=== PATIENT | male | born 1970 | race Caucasian/White ===

== ENCOUNTER 2021-11-01 06:34 | Emergency (ER) | payer SELFPAY ==
[2021-11-01 06:44] VITALS: BP 157/99; PULSE 82; RESP 18; TEMP 37.1; O2SAT 97; BMI 42.8
--- NOTE | 2021-11-01 06:48 | CTR_ITS ---
PROCEDURE INFORMATION: Exam: CT Abdomen And Pelvis With Contrast Exam date and time: 11/01/2021 6:48 AM Age: 51 years old Clinical indication: Abdominal pain; Additional info: Abd pain and distention TECHNIQUE: Imaging protocol: Computed tomography of the abdomen and pelvis with contrast. Total images: 278 Radiation optimization: All CT scans at this facility use at least one of these dose optimization techniques: automated exposure control; mA and/or kV adjustment per patient size (includes targeted exams where dose is matched to clinical indication); or iterative reconstruction. Contrast material: OMNI 300; Contrast volume: 95 ml; Contrast route: INTRAVENOUS (IV); COMPARISON: No relevant prior studies available. RADIATION DOSE METRICS: Total DLP (mGy-cm): 2035.18 FINDINGS: Liver: Normal. No mass. Gallbladder and bile ducts: Normal. No calcified stones. No ductal dilation. Pancreas: Normal. No ductal dilation. Spleen: Incidental splenic granuloma. Adrenal glands: Normal. No mass. Kidneys and ureters: Normal. No hydronephrosis. Stomach and bowel: Findings of infectious or inflammatory gastritis suspected. Appendix: No evidence of appendicitis. Intraperitoneal space: Unremarkable. No free air. No significant fluid collection. Vasculature: Incidental venous phlebolith noted. Lymph nodes: Unremarkable. No enlarged lymph nodes. Urinary bladder: Unremarkable as visualized. Reproductive: Unremarkable as visualized. Bones/joints: Mild scattered degenerative changes of the spine. Soft tissues: Bilateral fat-containing inguinal hernia. CT/CT abdomen pelvis w con* [id number] IMPRESSION: Findings of infectious or inflammatory gastritis suspected.
--- NOTE | 2021-11-01 06:51 | ED_ITS ---
HPI - Nausea/Vomiting/Diarrhea General: Chief complaint: Nausea/Vomiting/Diarrhea Stated complaint: N/V/D Time Seen by Provider: 11/01/21 06:39 History of Present Illness: HPI Narrative: Patient comes in with abdominal pain, nausea, vomiting, and diarrhea. States that it started last night about 1130 and has been coming and going since, no radiation, crampy in nature, started about an hour prior to arrival, associated with nausea vomiting and diarrhea. Denies any fever. Denies any previous surgery on his abdomen. States that he feels bloated. States that he ate some TV dinners that he thought might have been bad last night. Associated nausea: Yes Associated symtoms: Reports nausea; Denies altered mental status, anxiety, change in vision, chest pain, headache(s) or palpitations Review of Systems Const: Denies: fever(s) or body aches Eyes: Denies: change in vision or blurry vision ENMT: Denies: throat pain or odynophagia Card: Denies: chest pain or palpitations Resp: Denies: dyspnea or productive cough GI: Reports: abdominal pain, nausea, vomiting and diarrhea : Denies: flank pain Musc: Denies: neck pain or back pain Skin/Breast: Denies: rash or pruritus Neuro: Denies: headache(s) or numbness in extremities Psych: Denies: anxiety or change in appetite Endo: Denies: polyuria or excessive sweating Physical Exam Const: COMMON NORMALS: patient oriented x3; apparent distress (Mild distress from nausea) EXAM LIMITATIONS: no altered mental status GENERAL APPEARANCE: cooperative, comfortable and well developed ORIENTATION/CONSCIOUSNESS: Yes awake, Yes oriented to person, Yes oriented to place and Yes oriented to time HENMT: COMMON NORMALS: normocephalic and atraumatic HEAD & SCALP: normocephalic and atraumatic Eye: COMMON NORMALS: Equal, round and reactive pupils present and EOMs intact bilaterally PUPIL: Yes Equal, round and reactive pupils present Neck/C-Spine: COMMON NORMALS: full ROM and supple Resp: COMMON NORMALS: normal respiratory effort, No retractions and clear to auscultation bilaterally AUSCULTATION: clear to auscultation bilaterally Cardio: COMMON NORMALS: regular rate and regular rhythm RATE: regular rate RHYTHM: regular rhythm GI: COMMON NORMALS: Normal to inspection, nondistended, normoactive bowel sounds present, Soft to palpation and non-tender PALPATION: Yes Soft to palpation Back/Pelvis: COMMON NORMALS: thoraco-lumbar ROM normal Extremity: COMMON NORMALS: normal to inspection and full ROM Neuro: COMMON NORMALS: patient oriented x3 SENSORIUM/ORIENTATION: Yes oriented to person, Yes oriented to place and Yes oriented to time Course ED course: Patient comes in with abdominal pain, nausea, vomiting, and diarrhea that has been coming and going since it started last night about 1130. States the abdominal pain is cramping in nature and is off and on. States it is gone at this time, however he still has significant nausea and feels like he is going to throw up. States that he feels like he is bloated. On physical exam his abdomen is distended, soft, nontender. I do not know if the distention is due to normal body habitus or pathologic in nature. We will check labs, treat nausea with IV antiemetics, give IV fluids, check CT abdomen, and reassess. Reevaluation(s): Reevaluation #1: On reassessment the patient is resting comfortably with no signs of distress. Talked about the test results. Will discharge with precautions return for worsening or changing symptoms. Vital Signs: Vital signs: Vital Signs Temperature 98.7 F 11/01/21 06:44 Pulse Rate 86 11/01/21 08:20 Respiratory Rate 20 H 11/01/21 08:20 Blood Pressure 189/94 11/01/21 08:20 Pulse Oximetry 99 11/01/21 08:20 MDM - Nausea/Vomiting/Diarrhea Lab Data: Labs: Lab Results 11/01/21 11/01/21 11/01/21 07:15 07:15 08:00 WBC 15.0 10^3/uL H 10 ^3/uL (4.0-10.0) RBC 4.99 10^6/uL 10^6 /uL (4.1-5.3) Hgb 15.7 g/dL g/dL (11.7-16.6) Hct 46.9 % % (42.0-52.0) MCV 94.0 fl fl (80-94) MCH 31.5 pg pg (28.0-34.0) MCHC 33.5 g/dL g/dL (30.0-36.0) RDW 12.6 % % (12.1-15.1) Plt Count 286 10^3/cmm 10^3 /cmm (130-400) MPV 10.1 fL fL (7.4-10.4) Neut % (Auto) 73.0 % % Lymph % (Auto) 14.6 % % [place] % (Auto) 10.6 % % Eos % (Auto) 0.3 % % Baso % (Auto) 0.5 % % Neut # (Auto) 10.96 10^3/uL H 1 0^3/uL (1.8-7.7) Lymph # (Auto) 2.2 10^3/uL 10^3/ uL (0.8-4.8) [place] # (Auto) 1.6 10^3/uL H 10^ 3/uL (0.2-0.9) Eos # (Auto) 0.1 10^3/uL 10^3/ uL (0.0-0.8) Baso # (Auto) 0.1 10^3/uL 10^3/ uL (0.0-0.1) Nucleated RBC % (a uto) 0 % % Nucleated RBCs # 0.0 /100WBC /100W BC Sodium 140 mmol/L mmol/L (136-145) Potassium 3.8 mmol/L mmol/L (3.5-5.1) Chloride 108 mmol/L H mmol /L (98-107) Carbon Dioxide 22 mmol/L mmol/L (22-29) Anion Gap 13.8 (5-19) BUN 12 mg/dL mg/dL (6-20) Creatinine 0.6 mg/dL L mg/dL (0.7-1.2) GFR Calculation 142.6 mL/min H mL /min (90-130) Glucose 106 mg/dL mg/dL (65-115) Calculated Osmolal ity 290 mOsm/kg mOsm/ kg (285-295) Lactate 1.4 mmol/L mmol/L (0.5-2.2) Calcium 8.0 mg/dL L mg/dL (8.5-10.5) Total Bilirubin 0.2 mg/dL mg/dL (0.15-1.2) AST 14 U/L U/L (0-40) ALT 17 U/L U/L (0-41) Alkaline Phosphata se 62 IU/L IU/L (40-130) Total Protein 6.7 g/dL g/dL (6.6-8.7) Albumin 3.7 g/dL g/dL (3.5-5.2) Globulin 3.0 g/dL g/dL (1.3-4.6) Lipase 157 U/L H U/L (13-60) Discharge Plan Discharge Patient Disposition: Home Clinical Impression: Gastritis Qualifiers: Gastritis type: unspecified gastritis Chronicity: acute Gastritis bleeding: without bleeding Qualified Code(s): K29.00 - Acute gastritis without bleeding Condition: Stable Prescriptions: New Zofran 4 mg tablet 4 mg PO Q8H PRN (Reason: nausea and vomiting) Qty: 14 RF: 0 Discharge Orders: Discharge ED (Routine); Ordered 11/01/21 Ordered By: Uriel Spencer Activity Restrictions/Additional Instructions: Return to the emergency department for uncontrolled vomiting, dehydration, if your abdomen becomes hard or distended, or for other concerns. Coding Level of Care Code ED Bottom Painter for Selenag Fwd Exam Comprehensive
[2021-11-01 07:25] LABS: Basophils # 0.1 10^3/uL (0.0-0.1); Basophils % 0.5 %; Eosinophils # 0.1 10^3/uL (0.0-0.8); Eosinophils % 0.3 %; Hematocrit 46.9 % (42.0-52.0); Hemoglobin 15.7 g/dL (11.7-16.6); Lymphocytes # 2.2 10^3/uL (0.8-4.8); Lymphocytes % 14.6 %; Mean Corpuscular HGB Conc 33.5 g/dL (30.0-36.0); Mean Corpuscular Hemoglobin 31.5 pg (28.0-34.0); Mean Platelet Volume 10.1 fL (7.4-10.4); Monocytes # 1.6 10^3/uL (0.2-0.9); Monocytes % 10.6 %; Neutrophils # 10.96 10^3/uL (1.8-7.7); Nucleated Red Blood Cells % 0 %; Platelet Count 286 10^3/cmm (130-400); Red Blood Count 4.99 10^6/uL (4.1-5.3); Red Cell Distribution Width 12.6 % (12.1-15.1)
[2021-11-01 07:47] LABS: Alanine Aminotransferase 17 U/L (0-41); Albumin Level 3.7 g/dL (3.5-5.2); Alkaline Phosphatase 62 IU/L (40-130); Blood Urea Nitrogen 12 mg/dL (6-20); Carbon Dioxide 22 mmol/L (22-29); Chloride 108 mmol/L (98-107); Glomerular Filtration Rate 142.6 mL/min (90-130); Glucose 106 mg/dL (65-115); Lipase 157 U/L (13-60); Osmolality Calculated 290 mOsm/kg (285-295); Sodium 140 mmol/L (136-145); Total Bilirubin 0.2 mg/dL (0.15-1.2); Total Protein 6.7 g/dL (6.6-8.7)
[2021-11-01 07:49] LABS: Anion Gap 13.8 (5-19); Aspartate Amino Transferase 14 U/L (0-40); Potassium 3.8 mmol/L (3.5-5.1)
[2021-11-01] MEDS: sodium chloride 0.9% 1,000 ML 999 ML IV (07:51)
[2021-11-01] MEDS: ondansetron 2 mg/ML SDV 2 mL 4 MG IVP (07:51)
[2021-11-01 08:20] VITALS: BP 189/94; PULSE 86; RESP 20; O2SAT 99
[2021-11-01 08:25] LABS: Lactate (Lactic Acid level) 1.4 mmol/L (0.5-2.2)
[2021-11-01 09:55] VITALS: PULSE 66; RESP 18; O2SAT 97
== END 2021-11-01 09:55 | disposition home or self-care (01) ==
PROVIDERS: Emergency Provider Emergency Medicine
DX: K29.00 Acute gastritis without bleeding (principal)
CPT/HCPCS: 74177; 80053; 83605; 83690; 85025; 96361; 96374; 99284; J2405; J7030; Q9967

== ENCOUNTER 2022-01-22 23:30 | Inpatient (IN) | payer SELFPAY ==
[2022-01-22 23:54] VITALS: BP 169/116; PULSE 110; RESP 24; TEMP 36.9; O2SAT 96; BMI 40.6
[2022-01-23] VITALS (11 sets, daily range): BP systolic 115–176; BP diastolic 57–102; PULSE 79–104; RESP 16–18; TEMP 36.7–36.9; O2SAT 92–97; BMI 42.5
--- NOTE | 2022-01-23 00:04 | USR_ITS ---
PROCEDURE INFORMATION: Exam: US Scrotum and Artery or Vein of the Abdominal and/or Reproductive Organs, Limited Scrotum Exam date and time: 01/23/2022 12:28 AM Age: 51 years old Clinical indication: Scrotum pain TECHNIQUE: Imaging protocol: Real-time ultrasound of the scrotum. Real-time duplex ultrasound scan of the arterial or venous flow with lim scale, color Doppler flow and spectral waveform analysis with image documentation. Limited Duplex exam focused of the scrotum. Duplex images required to evaluate for torsion and other vascular conditions. COMPARISON: CT abdomen pelvis w con* [id number] 11/01/2021 7:24 AM FINDINGS: Right testicle: Right testicular contour and parenchymal echotexture is normal. There is no mass. The right testicle measures 3.7 x 2.7 x 2.2 cm. There is normal blood flow in the right testicle. Left testicle: Left testicular contour and parenchymal echotexture is normal. There is no mass. The left testicle measures 4.2 x 2.4 x 1.9 cm. There is normal blood flow in the left testicle. Epididymides: The epididymides are unremarkable. Scrotum: No hydrocele. US/US scrotum [id number] IMPRESSION: No pathologic findings.
--- NOTE | 2022-01-23 00:22 | W.ED.MALEGU ---
Documented by User: JIGNA Cannon 01/23/22 03:09 HPI - Male Genitourinary General: Chief complaint: ER Hold Stated complaint: Penis Pain/Swelling Time Seen by Provider: 01/23/22 00:17 History of Present Illness: Patient is a 51-year-old male comes to the ED with genital pain and swelling. Symptoms started today. Reports having some swelling of his penis with pain as well. He also is having testicular pain. Says any movement worsens the pain. He rates the pain a 9 out of 10. Reports some clear discharge from tip of penis. He describes the skin feeling overall around the tip of his penis. He reports pain when urinating. Denies any history of past STDs. Patient states he has not been sexually active in 5 years. Denies any urinary retention or purulent drainage around penis. Associated symptoms: Reports dysuria; Deny hematuria, nausea or vomiting Review of Systems Const: Denies: fever(s), chills or fatigue Eyes: Denies: change in vision or eye discomfort ENMT: Denies: throat pain, odynophagia, nasal discharge or nasal congestion Card: Denies: chest pain, palpitations, edema, swelling of feet/ankles, dyspnea on exertion or orthopnea Resp: Denies: dyspnea, productive cough or non-productive cough GI: Denies: abdominal pain, nausea, vomiting, diarrhea, constipation or hematochezia : Reports: dysuria, genital pain, penile discharge (clear discharge) and testicular pain; Denies: flank pain, difficulty urinating or hematuria Musc: Denies: neck pain, back pain or extremity swelling Skin/Breast: Denies: rash or new lesions Neuro: Denies: headache(s), numbness in extremities or weakness in extremities PFS ED PFSH: Medical History HTN (hypertension), benign Surgical History No pertinent past surgical history Family History Father CAD (coronary artery disease) Mother CAD (coronary artery disease) Social History Smoking and tobacco status: current every day smoker Alcohol intake: never Substance/Drug Use: never Physical Exam Const: COMMON NORMALS: patient oriented x3 and alert GENERAL APPEARANCE: cooperative HENMT: COMMON NORMALS: normocephalic HEAD & SCALP: normocephalic MOUTH: Normal oral and palatal mucosa present THROAT: posterior oropharynx normal and uvula midline Neck/C-Spine: COMMON NORMALS: supple GENERAL: Yes normal visual inspection Resp: COMMON NORMALS: normal respiratory effort, No retractions, No use of accessory muscles and clear to auscultation bilaterally AUSCULTATION: clear to auscultation bilaterally Cardio: COMMON NORMALS: regular rate, regular rhythm, S1 normal heart sound present, S2 normal heart sound present, No gallops present (Cardio), No clicks present (Cardio), No murmurs present (Cardio) and Peripheral pulses 2+ throughout RATE: regular rate RHYTHM: regular rhythm HEART SOUNDS: S1 normal heart sound present and S2 normal heart sound present PERIPHERAL PULSES: Peripheral pulses 2+ throughout GI: COMMON NORMALS: Normal to inspection, nondistended, normoactive bowel sounds present, Soft to palpation, non-tender and no masses PALPATION: Yes Soft to palpation : COMMON NORMALS: Yes no CVA tenderness BLADDER/KIDNEY EXAM: Yes no CVA tenderness OTHER: Glans penis-erythema, swollen tender to the touch. Surrounding erythema and warmth of the penis as well. Back/Pelvis: COMMON NORMALS: no CVA tenderness Extremity: COMMON NORMALS: normal to inspection Neuro: COMMON NORMALS: patient oriented x3 and moves all extremities SENSORIUM/ORIENTATION: Yes alert Skin: GENERAL SKIN EXAM: dry skin Course Vital Signs: Vital signs: Vital Signs Temperature 98.4 F 01/23/22 02:47 Pulse Rate 98 01/23/22 02:47 Respiratory Rate 18 01/23/22 02:47 Blood Pressure 155/87 01/23/22 02:47 Pulse Oximetry 96 01/23/22 02:47 MDM - Male Lab Data I reviewed the patient's lab results. : 01/23/22 00:57 01/23/22 00:57 Radiology Impressions Scrotum Ultrasound 01/23/22 00:04 IMPRESSION: No pathologic findings. Laboratory Results WBC 14.8 10^3/uL (4.0-10.0) H 01/23/22 00:57 RBC 5.30 10^6/uL (4.1-5.3) 01/23/22 00:57 Hgb 16.6 g/dL (11.7-16.6) 01/23/22 00:57 Hct 49.4 % (42.0-52.0) 01/23/22 00:57 MCV 93.2 fl (80-94) 01/23/22 00:57 MCH 31.3 pg (28.0-34.0) 01/23/22 00:57 MCHC 33.6 g/dL (30.0-36.0) 01/23/22 00:57 RDW 12.8 % (12.1-15.1) 01/23/22 00:57 Plt Count 252 10^3/cmm (130-400) 01/23/22 00:57 MPV 10.3 fL (7.4-10.4) 01/23/22 00:57 Neut % (Auto) 76.3 % 01/23/22 00:57 Lymph % (Auto) 11.9 % 01/23/22 00:57 [place] % (Auto) 9.1 % 01/23/22 00:57 Eos % (Auto) 1.9 % 01/23/22 00:57 Baso % (Auto) 0.4 % 01/23/22 00:57 Neut # (Auto) 11.27 10^3/uL (1.8-7.7) H 01/23/22 00:57 Lymph # (Auto) 1.8 10^3/uL (0.8-4.8) 01/23/22 00:57 [place] # (Auto) 1.4 10^3/uL (0.2-0.9) H 01/23/22 00:57 Eos # (Auto) 0.3 10^3/uL (0.0-0.8) 01/23/22 00:57 Baso # (Auto) 0.1 10^3/uL (0.0-0.1) 01/23/22 00:57 Nucleated RBC % (auto) 0 % 01/23/22 00:57 Nucleated RBCs # 0.0 /100WBC 01/23/22 00:57 Sodium 140 mmol/L (136-145) 01/23/22 00:57 Potassium 4.4 mmol/L (3.5-5.1) 01/23/22 00:57 Chloride 105 mmol/L (98-107) 01/23/22 00:57 Carbon Dioxide 22 mmol/L (22-29) 01/23/22 00:57 Anion Gap 17.4 (5-19) 01/23/22 00:57 BUN 10 mg/dL (6-20) 01/23/22 00:57 Creatinine 0.7 mg/dL (0.7-1.2) 01/23/22 00:57 GFR Calculation 119.4 mL/min (90-130) 01/23/22 00:57 Glucose 137 mg/dL (65-115) H 01/23/22 00:57 Calculated Osmolality 291 mOsm/kg (285-295) 01/23/22 00:57 Calcium 9.7 mg/dL (8.5-10.5) 01/23/22 00:57 Total Bilirubin 0.5 mg/dL (0.15-1.2) 01/23/22 00:57 AST 17 U/L (0-40) 01/23/22 00:57 ALT 15 U/L (0-41) 01/23/22 00:57 Alkaline Phosphatase 77 IU/L (40-130) 01/23/22 00:57 Total Protein 6.8 g/dL (6.6-8.7) 01/23/22 00:57 Albumin 3.8 g/dL (3.5-5.2) 01/23/22 00:57 Globulin 3.0 g/dL (1.3-4.6) 01/23/22 00:57 Urine Color Yellow (Yellow) 01/23/22 01:06 Urine Appearance Clear (CLEAR) 01/23/22 01:06 Urine pH 5 (5-7) 01/23/22 01:06 Ur Specific [place] 1.020 (1.005-1.030) 01/23/22 01:06 Urine Protein Neg (Negative) 01/23/22 01:06 Urine Glucose (UA) Norm (Normal) 01/23/22 01:06 Urine Ketones Negative (Negative) 01/23/22 01:06 Urine Blood Trace (Negative) H 01/23/22 01:06 Urine Nitrate Negative (Negative) 01/23/22 01:06 Urine Bilirubin Neg (Negative) 01/23/22 01:06 Urine Urobilinogen Norm mg/dL (Negative) 01/23/22 01:06 Ur Leukocyte Esterase 1+ (Negative) H 01/23/22 01:06 Urine RBC 5-10 /hpf (0-2) H 01/23/22 01:06 Urine WBC 5-10 /hpf (0-5) H 01/23/22 01:06 Ur Squamous Epith Cells 0-4 /hpf (0-5) H 01/23/22 01:06 Amorphous Sediment Not Reportable 01/23/22 01:06 Urine Bacteria Trace /hpf (NONE) 01/23/22 01:06 Urine Mucus 2+ /hpf 01/23/22 01:06 Discharge Plan Discharge Patient Disposition: Admitted As Inpatient Clinical Impression: Cellulitis, Balanitis Condition: Stable Coding Level of Care Code ED Magnet Valve Assembler for Chg Fwd Exam Comprehensive Documented by User: Omi Lovelace MD 01/23/22 02:38 HPI - Male Genitourinary General: Chief complaint: ER Hold Stated complaint: Penis Pain/Swelling Time Seen by Provider: 01/23/22 00:17 [facility] ED PFSH: Medical History HTN (hypertension), benign Surgical History No pertinent past surgical history Family History Father CAD (coronary artery disease) Mother CAD (coronary artery disease) Social History Smoking and tobacco status: current every day smoker Alcohol intake: never Substance/Drug Use: never Course Vital Signs: Vital signs: Vital Signs Temperature 98.4 F 01/23/22 02:47 Pulse Rate 98 01/23/22 02:47 Respiratory Rate 18 01/23/22 02:47 Blood Pressure 155/87 01/23/22 02:47 Pulse Oximetry 96 01/23/22 02:47 MDM - Male Medical Decision Making I saw patient with above midlevel. On exam he appears to have a severe balanitis with secondary cellulitis. No signs of Marlena's gangrene does have an elevated white count I spoke to Dr. Linton of urology along with hospitalist and will admit patient on Diflucan and vancomycin. Lab Data : 01/23/22 00:57 03 00:57 Radiology Impressions Scrotum Ultrasound 01/23/22 00:04 IMPRESSION: No pathologic findings. Laboratory Results WBC 14.8 10^3/uL (4.0-10.0) H 01/23/22 00:57 RBC 5.30 10^6/uL (4.1-5.3) 01/23/22 00:57 Hgb 16.6 g/dL (11.7-16.6) 01/23/22 00:57 Hct 49.4 % (42.0-52.0) 01/23/22 00:57 MCV 93.2 fl (80-94) 01/23/22 00:57 MCH 31.3 pg (28.0-34.0) 01/23/22 00:57 MCHC 33.6 g/dL (30.0-36.0) 01/23/22 00:57 RDW 12.8 % (12.1-15.1) 01/23/22 00:57 Plt Count 252 10^3/cmm (130-400) 01/23/22 00:57 MPV 10.3 fL (7.4-10.4) 01/23/22 00:57 Neut % (Auto) 76.3 % 01/23/22 00:57 Lymph % (Auto) 11.9 % 01/23/22 00:57 [place] % (Auto) 9.1 % 01/23/22 00:57 Eos % (Auto) 1.9 % 01/23/22 00:57 Baso % (Auto) 0.4 % 01/23/22 00:57 Neut # (Auto) 11.27 10^3/uL (1.8-7.7) H 01/23/22 00:57 Lymph # (Auto) 1.8 10^3/uL (0.8-4.8) 01/23/22 00:57 [place] # (Auto) 1.4 10^3/uL (0.2-0.9) H 01/23/22 00:57 Eos # (Auto) 0.3 10^3/uL (0.0-0.8) 01/23/22 00:57 Baso # (Auto) 0.1 10^3/uL (0.0-0.1) 01/23/22 00:57 Nucleated RBC % (auto) 0 % 01/23/22 00:57 Nucleated RBCs # 0.0 /100WBC 01/23/22 00:57 Sodium 140 mmol/L (136-145) 01/23/22 00:57 Potassium 4.4 mmol/L (3.5-5.1) 01/23/22 00:57 Chloride 105 mmol/L (98-107) 01/23/22 00:57 Carbon Dioxide 22 mmol/L (22-29) 01/23/22 00:57 Anion Gap 17.4 (5-19) 01/23/22 00:57 BUN 10 mg/dL (6-20) 01/23/22 00:57 Creatinine 0.7 mg/dL (0.7-1.2) 01/23/22 00:57 GFR Calculation 119.4 mL/min (90-130) 01/23/22 00:57 Glucose 137 mg/dL (65-115) H 01/23/22 00:57 Calculated Osmolality 291 mOsm/kg (285-295) 01/23/22 00:57 Calcium 9.7 mg/dL (8.5-10.5) 01/23/22 00:57 Total Bilirubin 0.5 mg/dL (0.15-1.2) 01/23/22 00:57 AST 17 U/L (0-40) 01/23/22 00:57 ALT 15 U/L (0-41) 01/23/22 00:57 Alkaline Phosphatase 77 IU/L (40-130) 01/23/22 00:57 Total Protein 6.8 g/dL (6.6-8.7) 01/23/22 00:57 Albumin 3.8 g/dL (3.5-5.2) 01/23/22 00:57 Globulin 3.0 g/dL (1.3-4.6) 01/23/22 00:57 Urine Color Yellow (Yellow) 01/23/22 01:06 Urine Appearance Clear (CLEAR) 01/23/22 01:06 Urine pH 5 (5-7) 01/23/22 01:06 Ur Specific [place] 1.020 (1.005-1.030) 01/23/22 01:06 Urine Protein Neg (Negative) 01/23/22 01:06 Urine Glucose (UA) Norm (Normal) 01/23/22 01:06 Urine Ketones Negative (Negative) 01/23/22 01:06 Urine Blood Trace (Negative) H 01/23/22 01:06 Urine Nitrate Negative (Negative) 01/23/22 01:06 Urine Bilirubin Neg (Negative) 01/23/22 01:06 Urine Urobilinogen Norm mg/dL (Negative) 01/23/22 01:06 Ur Leukocyte Esterase 1+ (Negative) H 01/23/22 01:06 Urine RBC 5-10 /hpf (0-2) H 01/23/22 01:06 Urine WBC 5-10 /hpf (0-5) H 01/23/22 01:06 Ur Squamous Epith Cells 0-4 /hpf (0-5) H 01/23/22 01:06 Amorphous Sediment Not Reportable 01/23/22 01:06 Urine Bacteria Trace /hpf (NONE) 01/23/22 01:06 Urine Mucus 2+ /hpf 01/23/22 01:06 Discharge Plan Discharge Patient Disposition: Admitted As Inpatient Clinical Impression: Cellulitis, Balanitis Condition: Stable Coding Level of Care Code ED Magnet Valve Assembler for Olaf Fwd Exam Comprehensive
[2022-01-23 00:59] LABS: Basophils # 0.1 10^3/uL (0.0-0.1); Basophils % 0.4 %; Eosinophils # 0.3 10^3/uL (0.0-0.8); Eosinophils % 1.9 %; Hematocrit 49.4 % (42.0-52.0); Hemoglobin 16.6 g/dL (11.7-16.6); Lymphocytes # 1.8 10^3/uL (0.8-4.8); Lymphocytes % 11.9 %; Mean Corpuscular HGB Conc 33.6 g/dL (30.0-36.0); Mean Corpuscular Hemoglobin 31.3 pg (28.0-34.0); Mean Corpuscular Volume 93.2 fl (80-94); Mean Platelet Volume 10.3 fL (7.4-10.4); Monocytes # 1.4 10^3/uL (0.2-0.9); Monocytes % 9.1 %; Neutrophils # 11.27 10^3/uL (1.8-7.7); Neutrophils % 76.3 %; Nucleated Red Blood Cells % 0 %; Platelet Count 252 10^3/cmm (130-400); Red Cell Distribution Width 12.8 % (12.1-15.1); White Blood Count 14.8 10^3/uL (4.0-10.0)
[2022-01-23] MEDS: ondansetron 2 mg/ML SDV 2 mL 4 MG IVP ×2 (01:03→05:51)
[2022-01-23] MEDS: morphine 4 mg/mL SDV 1 mL IVP (01:03)
[2022-01-23 01:20] LABS: Alkaline Phosphatase 77 IU/L (40-130)
[2022-01-23 01:22] LABS: Add Urine Culture? No; Add Urine Microscopic? YES; Bacteria Urine TRACE /hpf; Bilirubin Urine Neg (Negative); Blood Urine Trace (Negative); Glucose Urine UA Norm (Normal); Ketones Urine Negative (Negative); Leukocyte Esterase Urine 1+ (Negative); Mucus Urine 2+ /hpf; Nitrate Urine Negative (Negative); Protein Urine Neg (Negative); Squamous Epithelial Cell Urine 0-4 /hpf (0-5); Urine Appearance Clear (CLEAR); Urine Color Yellow (Yellow); Urobilinogen Urine Norm (Negative); pH Urine 5 (5-7)
[2022-01-23 01:25] LABS: Alanine Aminotransferase 15 U/L (0-41); Albumin Level 3.8 g/dL (3.5-5.2); Anion Gap 17.4 (5-19); Aspartate Amino Transferase 17 U/L (0-40); Blood Urea Nitrogen 10 mg/dL (6-20); Calcium 9.7 mg/dL (8.5-10.5); Carbon Dioxide 22 mmol/L (22-29); Chloride 105 mmol/L (98-107); Glomerular Filtration Rate 119.4 mL/min (90-130); Glucose 137 mg/dL (65-115); Osmolality Calculated 291 mOsm/kg (285-295); Potassium 4.4 mmol/L (3.5-5.1); Sodium 140 mmol/L (136-145); Total Bilirubin 0.5 mg/dL (0.15-1.2); Total Protein 6.8 g/dL (6.6-8.7)
[2022-01-23] MEDS: fluconazole 100 mg Tablet 150 MG PO (02:30)
[2022-01-23] MEDS: vancomycin 1,000 MG in sodium chloride 0.9% 250 ML 250 MG IV (02:30)
--- NOTE | 2022-01-23 02:57 | PM.HP ---
Providers/Chief Complaint Chief Complaint: Penis Pain/Swelling History of Present Illness Cole Marquez is a 51 year old male with a past medical history of hypertension, who presents to [facility] due to testicular, penile swelling, erythema, tenderness, drainage. Patient tells me that starting of for the last 24 hours he started to develop testicular alert, penile, swelling with erythema, drainage. Denies a history of STDs, denies a history of HIV, denies being sexually active, denies any dysuria. Does not report any history of shaving or ingrown hairs. He tells me that he started to feel pruritus, in the testicular region, and from there it started to develop erythema 20 redness, swelling. And rapidly evolved to involve the his penis, no history of syphilis, no history of chancres, history of herpes. In the emergency room he was found to have leukocytosis, scrotal ultrasound does not show any evidence of Marlena's gangrene ER physician has talked with Linton and he will consult, has been started on antibiotics, given fluconazole due to white discharge from penile head Review of Systems Const: Denies: fever(s) ENMT: Denies: nasal congestion Resp: Denies: dyspnea GI: Denies: abdominal pain, nausea, vomiting or hematemesis : Denies: flank pain, difficulty urinating or dysuria Medications/Allergies Home Medications Medication Instructions Recorded Confirmed Last Taken Type ondansetron HCl 4 mg tablet 4 mg PO Q8H PRN #14 tab 11/01/21 Unknown Rx (Zofran) Allergies Allergy/AdvReac Type Severity Reaction Status Date / Time No Known Allergies Allergy Verified 11/01/21 06:48 PFSH Acute PFSH: Medical History (Updated 01/23/22 @ 03:00 by Hadley Angela MD) HTN (hypertension), benign Surgical History (Updated 01/23/22 @ 03:01 by Hadley Angela MD) No pertinent past surgical history Family History (Updated 01/23/22 @ 03:01 by Hadley Angela MD) Father CAD (coronary artery disease) Mother CAD (coronary artery disease) Social History (Updated 01/23/22 @ 03:02 by Hadley Angela MD) Smoking and tobacco status: current every day smoker Alcohol intake: never Substance/Drug Use: never Vitals/I&O/Wt Last Vital Signs Temp 98.4 F 01/23/22 02:47 Pulse 98 01/23/22 02:47 Resp 18 01/23/22 02:47 BP 155/87 01/23/22 02:47 Pulse Ox 96 01/23/22 02:47 Weight last 48 hrs Weight 124.738 kg Physical Exam Const: COMMON NORMALS: no acute distress and patient oriented x3 HENMT: COMMON NORMALS: normocephalic HEAD & SCALP: normocephalic Resp: COMMON NORMALS: normal respiratory effort, No retractions, No use of accessory muscles and clear to auscultation bilaterally AUSCULTATION: clear to auscultation bilaterally Cardio: COMMON NORMALS: no JVD, regular rate, regular rhythm, S1 normal heart sound present and S2 normal heart sound present RATE: regular rate RHYTHM: regular rhythm HEART SOUNDS: S1 normal heart sound present and S2 normal heart sound present GI: COMMON NORMALS: Normal to inspection, nondistended, normoactive bowel sounds present, Soft to palpation, non-tender, No hepatosplenomegaly present, no masses and no bruits PALPATION: Yes Soft to palpation and Yes No hepatosplenomegaly present : OTHER: circumcised penis, white discharge on penile head, with erythema, almost chancre-like lesions, with surrounding erythema penile tenderness and swelling, erythema, tenderness, swelling over scrotum,, extending to the right flank Extremity: COMMON NORMALS: capillary refill normal, no clubbing, cyanosis or edema, no calf tenderness and no pedal edema Neuro: COMMON NORMALS: patient oriented x3 Psych: COMMON NORMALS: mental status grossly normal Data : 01/23/22 00:57 01/23/22 00:57 A&P Assessment and plan (1) Cellulitis: Status: Acute (2) Balanitis: Status: Acute Plan Scrotal cellulitis/balanitis -Urine culture, gonorrhea, chlamydia, HIV, RPR, -Continue broad-spectrum antibiotic therapy vancomycin and Zosyn -Follow inflammatory markers -Follow cultures -Dr. Linton on consult -Given fluconazole -Morphine for pain -Lovenox for DVT prophylaxis -Full code Attestations Medical Necessity Statement*: Patient requires hospitalization for scrotal cellulitis, inpatient, greater than 2 midnights Coding Level of Care Code Acute Child Development Teacher for [facility] Diagnoses Cellulitis L03.90 Balanitis N48.1
[2022-01-23 03:29] LABS: C Reactive Protein 11.7 mg/L (0.0-4.9); Creatine Phosphokinase 55 U/L (39-308)
[2022-01-23 03:36] LABS: Procalcitonin 0.08 ng/mL (0-0.5); Rapid Plasma Reagin Syphilis Nonreactive (Nonreactive)
[2022-01-23 03:41] LABS: HIV 1 & 2 Antibody Non-Reactive (Non-Reactiv); HIV 1 & 2 Antigen Non-Reactive (Non-Reactiv)
[2022-01-23] MEDS: enoxaparin 40 mg/0.4 mL Syringe SUBCUT (03:57)
[2022-01-23] MEDS: piperacillin-tazobactam 3.375 GM in sodium chloride 0.9% (plus) 50 ML IV ×3 (03:57→19:58)
[2022-01-23] MEDS: morphine 4 mg/mL SDV 1 mL 2 MG IVP ×4 (05:54→22:28)
--- NOTE | 2022-01-23 07:45 | PM.CONSULT ---
Providers/Reason For Consult Consulting Physician/Specialty*: Urology/Linton Reason for Consult*: Genital and lower abdominal skin infection Requesting Physician: Dr. Lovelace Attending Physician: Dain Farrell MD History of Present Illness History of Present Illness Cole Marquez is a 51 year old male who I evaluated for the first time this morning with request emergency department physician last night where he presented with complaints of what sound like a fairly abrupt onset of genital type infection. Complained initially of some irritation and pruritus with increasing pain and drainage from the external aspect of the penis. Developed some redness in the mons pubis area and presented to the emergency department. Work-up showed an elevated white count of 14. Physical exam revealed no evidence of crepitus. Ultrasound showed no air in the tissues. There was no eschar or skin necrosis. It appeared that he was suffering from cellulitis. Was started on antibiotics and antifungal therapy. I was consulted for further evaluation. My exam as above. Agree with conservative management initially. No indication for surgical intervention at this point. Review of Systems Const: Reports: fatigue and malaise; Denies: fever(s) Eyes: Denies: change in vision or eye discharge ENMT: Denies: hoarseness Card: Denies: chest pain or palpitations Resp: Denies: productive cough or wheezing GI: Reports: abdominal pain; Denies: nausea : Reports: genital lesions; Denies: flank pain or difficulty urinating Musc: Denies: joint pain or joint redness Skin/Breast: Reports: rash, pruritus and erythema Neuro: Denies: Slurred speech present, difficulty communicating thoughts or seizure-like activity Psych: Denies: anxiety or depression Endo: Denies: flushing Killian/Lymph: Denies: easy bruising or easy bleeding All/Imm: Denies: urticaria or acute wheezing Medications/Allergies Home Medications Medication Instructions Recorded Confirmed Last Taken Type ondansetron HCl 4 mg tablet 4 mg PO Q8H PRN #14 tab 11/01/21 01/23/22 Unknown Rx (Zofran) naproxen sodium 220 mg tablet 440 mg PO Q12H PRN 01/23/22 01/23/22 01/22/22 History (Aleve) Allergies Allergy/AdvReac Type Severity Reaction Status Date / Time No Known Allergies Allergy Verified 01/23/22 07:59 Current Medications Generic Name Dose Route Start Last Admin Trade Name Freq PRN Reason Stop Dose Admin Enoxaparin Sodium 40 mg 01/23/22 03:00 01/23/22 03:57 Enoxaparin 40 Mg/0.4 Ml Syringe SUBCUT 40 mg Q24H МАРИЯ Administration Piperacillin Sod/Tazobactam 50 mls @ 12.5 mls/hr 01/23/22 03:00 01/23/22 03:57 Sod 3.375 gm/ Sodium Chloride IV 12.5 mls/hr Q8H МАРИЯ Administration Protocol Morphine Sulfate 2 mg 01/23/22 02:56 01/23/22 05:54 Morphine 4 Mg/Ml Sdv 1 Ml IVP 2 mg Q4H PRN Administration SEVERE PAIN Ondansetron HCl 4 mg 01/23/22 02:51 01/23/22 05:51 Ondansetron 2 Mg/Ml Sdv 2 Ml IVP 4 mg Q8H PRN Administration vomiting, or N/V if npo PFSH Acute PFSH: Medical History HTN (hypertension), benign Surgical History No pertinent past surgical history Family History Father CAD (coronary artery disease) Mother CAD (coronary artery disease) Social History Smoking and tobacco status: current every day smoker Alcohol intake: never Substance/Drug Use: never Vitals/I&O/Wt Last Vital Signs Temp 98.4 F 01/23/22 02:47 Pulse 98 01/23/22 02:47 Resp 18 01/23/22 05:54 BP 176/96 01/23/22 05:45 Pulse Ox 96 01/23/22 05:54 01/22/22 01/23/22 01/23/22 22:59 06:59 14:59 Intake Total 250 / 250 Balance 250 / 250 Weight last 48 hrs Weight 275 lb Physical Exam Const: COMMON NORMALS: no acute distress, alert and well nourished GENERAL APPEARANCE: well kempt and well developed ORIENTATION/CONSCIOUSNESS: not confused HENMT: COMMON NORMALS: normocephalic and atraumatic HEAD & SCALP: normocephalic and atraumatic Eye: COMMON NORMALS: conjunctivae normal and no scleral icterus CONJUNCTIVA: Yes conjunctivae normal Neck/C-Spine: COMMON NORMALS: full ROM Resp: COMMON NORMALS: normal respiratory effort EFFORT & INSPECTION: No labored and No Actively coughing Cardio: COMMON NORMALS: regular rate and regular rhythm RATE: regular rate RHYTHM: regular rhythm GI: OTHER: Soft. No masses. Mons pubis erythema described below. No other gross abnormality. Truncal obesity : OTHER: Uncircumcised. Phallus is erythematous, inflamed, no evidence of skin loss. Scrotal structures are normal. Skin shows some erythema but no evidence of crepitus induration eschar etc. Mons pubis demonstrates some erythema without crepitus or skin loss. Findings most consistent with cellulitis. Extremity: COMMON NORMALS: no clubbing, cyanosis or edema Neuro: COMMON NORMALS: no focal motor deficits SENSORIUM/ORIENTATION: Yes alert Psych: COMMON NORMALS: mental status grossly normal APPEARANCE: Yes grossly normal and Yes well kempt ATTITUDE: Yes calm and Yes engaged Skin: COMMON NORMALS: no jaundice Data : 01/23/22 00:57 01/23/22 00:57 Micro: Microbiology 01/23/22 03:55 Blood Culture - Preliminary Blood SPECIMEN COLLECTED 01/23/22 00:57 Blood Culture - Preliminary Blood SPECIMEN COLLECTED A&P Assessment and plan (1) Cellulitis: No evidence of Marlena's gangrene. Status: Acute (2) Balanitis: Status: Acute Plan Agree with IV antibiotics. Close observation for significant advancement possible development of Marlena's gangrene. Consult Attestations Medical Necessity Statement: Requires IV antibiotics and close observation inpatient. 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 Diagnoses Cellulitis L03.90 Balanitis N48.1
[2022-01-23] MEDS: vancomycin 1,500 MG/300 ML PIGGYBACK 200 MG IV ×2 (10:10→17:17)
[2022-01-23] MEDS: pantoprazole DR 40 mg Tablet PO (10:11)
--- NOTE | 2022-01-23 10:23 | PC.CHAP ---
Pastoral Care Encounter/Spiritual Assessment Type of Contact [] Declined feature writer visit [] Patient/Family/Request visit [] Outpatient visit [] Follow-up visit [] Physician referral [] Code/Alert [x] Routine visit [] Staff referral [] Actively dying [] Patient sleeping [] Family support [] [] Out of room [] Palliative care [] [] Receiving care in room [] Pre-surgical visit [] Trauma [] Long length of stay [] ICU visit [] Other: Relational/Emotional Strength [x] Patient feels connected with others/family/visitors/staff [] Distress [] Loneliness/isolation [] Abandonment Spirituality of Patient [x] Person of [place] [] Attends Evangelical of their [place] [] Believes in Prayer [] Reads Bible or Anabaptism materials [] There are Spiritual issues to be addressed Dba Developer Interventions [] Prayer [x] Active listening [x] Non-anxious presence [x] Spiritual/emotional support [] Crisis/trauma care [] Spiritual counseling [] Bereavement support [] Provided bereavement packet [] Provided Bible/devotional materials [] Provided toy/stuffed animal, coloring book to patient or family member [] Provided Communion [] Anointing/Abbot [] Salvation [x] Completed spiritual assessment [] Other: Impact on Illness or Injury [] Angry [] Fearful [] Anxious [] Often cries [] Exhaustion [] Unable to work [] Unable to attend scientologist [] Unable to walk/stand [] Unable to read [] Unable to drive [] Unable to eat/drink [] Unable to sleep [] Unable to be with family [] Patient intubated [] Other: Summary Pt came through ER and is just getting settled in room. Housing staff were working on getting his room arranged for him. Pt stated he has family concerned but he has not called them yet. He does have a cell phone available. Time spent with patient 10 m
[2022-01-23] MEDS: sennosides-docusate Tablet 1 TAB PO (12:34)
[2022-01-23 12:40] LABS: Glucose Point of Care 130 mg/dL (70-110)
[2022-01-23 13:03] LABS: Chol HDL Ratio 7.28 mg/dL (1.0-5.00); Cholesterol 211 mg/dL (0-200); HDL Cholesterol 29 mg/dL (60-100); LDL Cholesterol Calculated 129 mg/dL (50-129); LDL HDL Ratio 4.45 RATIO (0.00-3.22); Triglycerides 263 mg/dL (0-150)
[2022-01-23 13:06] LABS: Estmated Average Glucose 105; Hemoglobin A1C 5.3 % (4.0-6.0)
--- NOTE | 2022-01-23 18:28 | PC.NURSE ---
Resting in bed. AAOX4, c/o minimal pain to groin at this time. Pain increases with movement. ABT infusing per orders. No other issues noted.
[2022-01-24] VITALS (11 sets, daily range): BP systolic 122–162; BP diastolic 68–86; PULSE 77–85; RESP 14–20; TEMP 36.5–37; O2SAT 94–97
[2022-01-24] MEDS: vancomycin 1,500 MG/300 ML PIGGYBACK 200 MG IV ×3 (02:24→17:37)
[2022-01-24] MEDS: piperacillin-tazobactam 3.375 GM in sodium chloride 0.9% (plus) 50 ML IV ×3 (03:46→20:30)
[2022-01-24] MEDS: enoxaparin 40 mg/0.4 mL Syringe SUBCUT (03:49)
[2022-01-24] MEDS: morphine 4 mg/mL SDV 1 mL 2 MG IVP ×4 (03:53→20:31)
[2022-01-24 05:33] LABS: Basophils # 0.1 10^3/uL (0.0-0.1); Basophils % 0.6 %; Eosinophils # 0.4 10^3/uL (0.0-0.8); Eosinophils % 3.3 %; Hematocrit 48.6 % (42.0-52.0); Hemoglobin 16.1 g/dL (11.7-16.6); Lymphocytes # 2.2 10^3/uL (0.8-4.8); Mean Corpuscular HGB Conc 33.1 g/dL (30.0-36.0); Mean Corpuscular Hemoglobin 30.5 pg (28.0-34.0); Monocytes # 0.9 10^3/uL (0.2-0.9); Monocytes % 8.3 %; Neutrophils # 7.02 10^3/uL (1.8-7.7); Neutrophils % 66.4 %; Nucleated Red Blood Cells % 0 %; Platelet Count 217 10^3/cmm (130-400); Red Blood Count 5.28 10^6/uL (4.1-5.3); Red Cell Distribution Width 12.8 % (12.1-15.1); White Blood Count 10.6 10^3/uL (4.0-10.0)
[2022-01-24 06:16] LABS: Anion Gap 14.4 (5-19); Blood Urea Nitrogen 10 mg/dL (6-20); C Reactive Protein 12.6 mg/L (0.0-4.9); Calcium 9.2 mg/dL (8.5-10.5); Carbon Dioxide 24 mmol/L (22-29); Chloride 102 mmol/L (98-107); Glomerular Filtration Rate 142.6 mL/min (90-130); Glucose 118 mg/dL (65-115); Osmolality Calculated 282 mOsm/kg (285-295); Potassium 4.4 mmol/L (3.5-5.1); Sodium 136 mmol/L (136-145)
[2022-01-24] MEDS: pantoprazole DR 40 mg Tablet PO (07:49)
[2022-01-24] MEDS: sennosides-docusate Tablet 1 TAB PO (07:49)
--- NOTE | 2022-01-24 08:51 | P.PN_ITS ---
Subjective Subjective: Patient is endorsing feeling better He has been using topical steroids for his psoriasis He was anxious to go home I told him I would like to watch him for now and he is not ready to be discharged Afebrile No severe worsening leukocytosis Vitals/I&O/Wt Last Vital Signs Temp 97.8 F 01/24/22 07:32 Pulse 77 01/24/22 07:32 Resp 20 H 01/24/22 07:55 BP 162/81 01/24/22 07:32 Pulse Ox 94 01/24/22 07:32 01/23/22 01/24/22 01/24/22 22:59 06:59 14:59 Intake Total 590 / 1300 470 / 1770 Balance 590 / 1300 470 / 1770 Weight last 48 hrs Weight 130.776 kg Weight 124.738 kg Physical Exam Narrative: Patient was laying comfortably in his bed Cellulitis of mons pubis noted hyperemia has extended slightly beyond the demarcated border however I do not feel any crepitation, no active purulent drainage Tender to palpate No pain when I touch him around medial side of his thigh no crepitation noted S1, S2 Such Room air Morbidly obese Comfortable in his bed Hemodynamically stable Nonfocal neuro exam Multiple psoriatic garcia Data : 01/24/22 05:12 01/24/22 05:12 Micro: Microbiology 01/23/22 03:55 Blood Culture - Preliminary Blood NEGATIVE TO DATE 01/23/22 00:57 Blood Culture - Preliminary Blood NEGATIVE TO DATE 01/23/22 01:06 Chlamydia trachomatis (SHARMIN) - Final Urine Random Neisseria gonorrhoeae (SHARMIN) - Final A&P Assessment and plan (1) Cellulitis: Status: Acute (2) Psoriasis: Status: Acute Plan Cellulitis, nonpurulent mons pubis No signs of Marlena's gangrene Leukocytosis trending down Afebrile Continue broad-spectrum antibiotics He is not diabetic If he keeps showing signs of improvement, will de-escalate antibiotics by tomorrow Add antihypertensive regimen for his hypertension He is not diabetic, hemoglobin A1c reviewed Opioids For psoriasis topical steroids Continue hospitalization Full code Appreciate urology recommendations DVT prophylaxis on board Attestations Medical Necessity Statement*: Continue hospitalization Time Spent in Patient Care: 20mins Coding Level of Care 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
[2022-01-24 09:31] LABS: Vancomycin Trough 13.3 ug/mL (10-15)
--- NOTE | 2022-01-24 09:50 | P.PN_ITS ---
Subjective Subjective: Overall thinks he is feeling better. Less discomfort, drying up , denies chills. Physical findings show persistence of erythema on the mons but decreasing swelling inflammatory changes of the penis and scrotum. Testicles are benign feeling with no evidence of intrascrotal infectious process. I did recommend that he continue to maintain inpatient status for IV antibiotics with reassessment in the morning for possible discharge on oral antibiotics. With the slight increase in erythema on the mons pubis I think that would make more sense There is no evidence of necrotizing fasciitis changes though. Medications: Reviewed: Yes Vitals/I&O/Wt Last Vital Signs Temp 97.8 F 01/24/22 07:32 Pulse 77 01/24/22 07:32 Resp 20 H 01/24/22 07:55 BP 162/81 01/24/22 07:32 Pulse Ox 94 01/24/22 07:32 01/23/22 01/24/22 01/24/22 22:59 06:59 14:59 Intake Total 590 / 1300 470 / 1770 Balance 590 / 1300 470 / 1770 Weight last 48 hrs Weight 288 lb 5 oz Weight 275 lb Physical Exam Narrative: Alert oriented no acute distress No labored respiration or wheezes Abdomen is soft nontender. The mons pubis area appears to be slightly increased in erythema with possibly some extension proximally that was more so than yesterday. There is no crepitus eschar skin breakdown necrosis etc. The penile inflammatory changes have decreased as well. Scrotum looks much improved from a cellulitis type perspective. Benign intrascrotal contents on examination. Data : 01/24/22 05:12 01/24/22 05:12 Micro: Microbiology 01/23/22 01:06 Urine Culture - Preliminary Urine,Clean Catch 01/23/22 03:55 Blood Culture - Preliminary Blood NEGATIVE TO DATE 01/23/22 00:57 Blood Culture - Preliminary Blood NEGATIVE TO DATE 01/23/22 01:06 Chlamydia trachomatis (SHARMIN) - Final Urine Random Neisseria gonorrhoeae (SHARMIN) - Final A&P Assessment and plan (1) Cellulitis: Improved. Still some increased erythema on the mons pubis area Status: Acute (2) Balanitis: Improved Status: Acute Attestations Medical Necessity Statement*: See attending. Hopefully tomorrow be a very reasonable day for discharge pending status of infectious changes. 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
[2022-01-25] VITALS (9 sets, daily range): BP systolic 131–146; BP diastolic 71–89; PULSE 68–86; RESP 16–18; TEMP 36.7–37; O2SAT 94–98
[2022-01-25] MEDS: vancomycin 1,500 MG/300 ML PIGGYBACK 150 MG IV ×3 (01:35→17:15)
[2022-01-25] MEDS: morphine 4 mg/mL SDV 1 mL 2 MG IVP ×4 (01:38→19:46)
[2022-01-25 03:13] LABS: Basophils # 0.1 10^3/uL (0.0-0.1); Basophils % 0.6 %; Eosinophils # 0.4 10^3/uL (0.0-0.8); Eosinophils % 3.5 %; Hematocrit 47.8 % (42.0-52.0); Hemoglobin 15.6 g/dL (11.7-16.6); Lymphocytes # 2.5 10^3/uL (0.8-4.8); Lymphocytes % 23.5 %; Mean Corpuscular HGB Conc 32.6 g/dL (30.0-36.0); Mean Corpuscular Hemoglobin 30.1 pg (28.0-34.0); Mean Corpuscular Volume 92.1 fl (80-94); Mean Platelet Volume 10.4 fL (7.4-10.4); Neutrophils # 6.48 10^3/uL (1.8-7.7); Nucleated Red Blood Cells % 0 %; Platelet Count 235 10^3/cmm (130-400); Red Blood Count 5.19 10^6/uL (4.1-5.3); Red Cell Distribution Width 12.8 % (12.1-15.1); White Blood Count 10.4 10^3/uL (4.0-10.0)
[2022-01-25 03:27] LABS: C Reactive Protein 8.7 mg/L (0.0-4.9)
[2022-01-25 03:32] LABS: Anion Gap 13.3 (5-19); Blood Urea Nitrogen 13 mg/dL (6-20); Calcium 9.7 mg/dL (8.5-10.5); Carbon Dioxide 25 mmol/L (22-29); Chloride 104 mmol/L (98-107); Glomerular Filtration Rate 119.4 mL/min (90-130); Glucose 96 mg/dL (65-115); Osmolality Calculated 286 mOsm/kg (285-295); Potassium 4.3 mmol/L (3.5-5.1); Sodium 138 mmol/L (136-145)
[2022-01-25] MEDS: piperacillin-tazobactam 3.375 GM in sodium chloride 0.9% (plus) 50 ML IV ×3 (03:45→19:46)
[2022-01-25] MEDS: enoxaparin 40 mg/0.4 mL Syringe SUBCUT (03:46)
--- NOTE | 2022-01-25 07:48 | P.PN_ITS ---
Subjective Subjective: Hospital day #3. Still has some soreness in the mons pubis area. Overall though feeling better. White count stable at 10.4. Physical exam reveals some persistence of erythema in the mons pubis but overall the genital exam is improved. No crepitus eschar skin breakdown etc. We will review with the hospitalist service for consideration of discharge on oral antibiotics or maintain inpatient status for the benefit of IV antibiotics until further improvement. Vitals/I&O/Wt Last Vital Signs Temp 98.4 F 01/25/22 07:19 Pulse 68 01/25/22 07:19 Resp 18 01/25/22 07:19 BP 142/71 01/25/22 07:19 Pulse Ox 94 01/25/22 07:19 01/24/22 01/25/22 01/25/22 22:59 06:59 14:59 Intake Total 590 / 1300 350 / 1650 Balance 590 / 1300 350 / 1650 Weight last 48 hrs Weight 288 lb 5 oz Physical Exam Const: OTHER: Alert and oriented no acute distress Resp: OTHER: No labored respiration, no wheezing : OTHER: See HPI. Still with significant erythema in the mons pubis but no increase. No crepitus. No palpable fluctuance. No skin breakdown or necrosis. Improved scrotal and penile inflammatory changes. Psych: COMMON NORMALS: mental status grossly normal, cooperative and speech normal SPEECH: Yes normal speech Data : 01/25/22 02:26 01/25/22 02:26 Micro: Microbiology 01/23/22 01:06 Urine Culture - Preliminary Urine,Clean Catch 01/23/22 03:55 Blood Culture - Preliminary Blood NEGATIVE TO DATE 01/23/22 00:57 Blood Culture - Preliminary Blood NEGATIVE TO DATE A&P Assessment and plan (1) Cellulitis: Still with some redness on the mons pubis but overall decreased tenderness. No crepitus skin loss necrosis etc. Feeling better overall. Agree with Dr. Farrell's recommendation for maintaining IV antibiotics 3 today and reassess for possible discharge tomorrow. 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
[2022-01-25] MEDS: pantoprazole DR 40 mg Tablet PO (07:57)
--- NOTE | 2022-01-25 09:18 | P.PN_ITS ---
Subjective Subjective: Patient is still endorsing some soreness and discomfort when he voids urine, however redness has not worsened He is afebrile Blood pressure stable He is not diabetic I am planning to continue IV antibiotics for 1 more day and discharge him tomorrow Patient is agreeable Appreciate Dr Linton recommendations Vitals/I&O/Wt Last Vital Signs Temp 98.4 F 01/25/22 07:19 Pulse 68 01/25/22 07:19 Resp 18 01/25/22 07:19 BP 142/71 01/25/22 07:19 Pulse Ox 94 01/25/22 07:19 01/24/22 01/25/22 01/25/22 22:59 06:59 14:59 Intake Total 590 / 1300 350 / 1650 720 / 720 Balance 590 / 1300 350 / 1650 720 / 720 Weight last 48 hrs Weight 130.776 kg Physical Exam Narrative: Hyperemia of mons pubis area seems to be regressing from its boundaries I do not appreciate any air under the skin, crepitation, active purulent discharge Tender to deep palpation Swelling of skin Nonpurulent cellulitis S1, S2 Obese male patient laying comfortably in his bed Satting well on room air Multiple psoriasis plaques Abdomen soft Nonfocal neuro exam Data : 01/25/22 02:26 01/25/22 02:26 Micro: Microbiology 01/23/22 01:06 Urine Culture - Preliminary Urine,Clean Catch A&P Assessment and plan (1) Cellulitis: Status: Acute (2) Psoriasis: Status: Acute Plan I do suspect an insect bite which resulted in nonpurulent cellulitis of mons pubis area, No signs of Marlena's gangrene Plan to continue IV antibiotics for 1 more day, de-escalate to oral antibiotics at the time of discharge Patient is agreeable with the plan will touch base with Dr. 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
[2022-01-26] VITALS (7 sets, daily range): BP systolic 122–138; BP diastolic 72–86; PULSE 72–84; RESP 16–18; TEMP 36.4–36.8; O2SAT 95–100
[2022-01-26] MEDS: vancomycin 1,500 MG/300 ML PIGGYBACK 150 MG IV ×2 (01:11→09:33)
[2022-01-26] MEDS: morphine 4 mg/mL SDV 1 mL 2 MG IVP ×2 (01:15→05:17)
[2022-01-26] MEDS: piperacillin-tazobactam 3.375 GM in sodium chloride 0.9% (plus) 50 ML IV ×2 (03:28→11:44)
[2022-01-26 03:57] LABS: Basophils # 0.1 10^3/uL (0.0-0.1); Basophils % 0.7 %; Eosinophils # 0.3 10^3/uL (0.0-0.8); Eosinophils % 2.9 %; Hematocrit 46.4 % (42.0-52.0); Hemoglobin 15.6 g/dL (11.7-16.6); Lymphocytes # 2.1 10^3/uL (0.8-4.8); Lymphocytes % 19.9 %; Mean Corpuscular HGB Conc 33.6 g/dL (30.0-36.0); Mean Corpuscular Hemoglobin 31.1 pg (28.0-34.0); Mean Corpuscular Volume 92.4 fl (80-94); Mean Platelet Volume 10.2 fL (7.4-10.4); Monocytes % 9.2 %; Neutrophils # 6.96 10^3/uL (1.8-7.7); Neutrophils % 66.9 %; Nucleated Red Blood Cells % 0 %; Platelet Count 221 10^3/cmm (130-400); Red Blood Count 5.02 10^6/uL (4.1-5.3); Red Cell Distribution Width 12.7 % (12.1-15.1); White Blood Count 10.4 10^3/uL (4.0-10.0)
[2022-01-26] MEDS: acetaminophen 325 mg Tablet 650 MG PO (09:26)
[2022-01-26] MEDS: pantoprazole DR 40 mg Tablet PO (09:26)
[2022-01-26] MEDS: sennosides-docusate Tablet 1 TAB PO (09:26)
--- NOTE | 2022-01-26 09:38 | PM.DCS ---
Discharge Providers Date of Admission: 01/23/22 04:02 Date of Discharge: January 26, 2022 Attending Provider at Admission: Hadley Angela MD Attending Provider at Discharge: Dain Farrell MD Diagnoses at Discharge Discharge Diagnosis (1) Cellulitis: Status: Acute (2) Balanitis: Status: Acute Reason for Visit Reason for Visit: Penis Pain/Swelling Hospital Course Hospital Course Admitting note by Dr. Hardy: Cole Marquez is a 51 year old male with a past medical history of hypertension, who presents to [facility] due to testicular, penile swelling, erythema, tenderness, drainage.? Patient tells me that starting of for the last 24 hours he started to develop testicular alert, penile, swelling with erythema, drainage.? Denies a history of STDs, denies a history of HIV, denies being sexually active, denies any dysuria.? Does not report any history of shaving or ingrown hairs.? He tells me that he started to feel pruritus, in the testicular region, and from there it started to develop erythema & redness, swelling.? And rapidly evolved to involve the his penis, no history of syphilis, no history of chancres, history of herpes.? In the emergency room he was found to have leukocytosis, scrotal ultrasound does not show any evidence of Marlena's gangrene ER physician has talked with Royer and he will consult, has been started on antibiotics, given fluconazole due to white discharge from penile head Hospital course Patient was admitted for management & evaluation of scrotal cellulitis with balanitis. He was kept on IV broad-spectrum antibiotics, he was given a dose of fluconazole at the time of admission. Chlamydia gonorrhea negative. He remained afebrile, no signs of crepitation or Marlena's gangrene. Cultures remain negative. Hyperemia did not worsen. CRP reduced as well. Procalcitonin 0.1. Urine cultures unremarkable, blood cultures sterile. He was given 3 days of IV antibiotics in the hospital, decision was made to discharge him on 01/[address] Linton follow-up, he will get 10-day treatment with clindamycin and Augmentin. My concern is related to spider bite induced nonpurulent cellulitis of mons pubis. His hemoglobin A1c is 5.3. He is not diabetic. I counseled patient to use a new razor every time he removes hair around mons pubis. Scrotal ultrasound unremarkable. He is not septic. HIV panel nonreactive, RPR nonreactive For psoriasis plaque prescribed topical hydrocortisone, outpatient follow-up with Dr. 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, documentation provided via case pickermanager php Exam Narrative: Patient lying comfortably in his bed Saturating well on room air Nonfocal neuro exam Abdomen soft Mons pubis area shows erythema, erythema seems to be regressing, no signs of crepitation, I do not feel any fluctuant mass as well, I do not see any signs of skin breakdown or necrosis, no signs of Marlena's gangrene Scrotal edema improved Did not notice penile discharge Bilateral fat-containing inguinal hernia Awake and alert Nonfocal neuro exam Discharge Data Studies Completed and Pending Completed Studies During Hospitalization Category Date Time Status US testicular [US scrotum [id number]] Urgent Ultrasound 01/23/22 00:04 Completed Pending at discharge Category Date Time Status Blood Culture Stat Lab 01/23/22 03:55 Results Radiology Impressions Scrotum Ultrasound 01/23/22 00:04 IMPRESSION: No pathologic findings. Laboratory Results WBC 10.4 10^3/uL (4.0-10.0) H 01/26/22 02:47 RBC 5.02 10^6/uL (4.1-5.3) 01/26/22 02:47 Hgb 15.6 g/dL (11.7-16.6) 01/26/22 02:47 Hct 46.4 % (42.0-52.0) 01/26/22 02:47 MCV 92.4 fl (80-94) 01/26/22 02:47 MCH 31.1 pg (28.0-34.0) 01/26/22 02:47 MCHC 33.6 g/dL (30.0-36.0) 01/26/22 02:47 RDW 12.7 % (12.1-15.1) 01/26/22 02:47 Plt Count 221 10^3/cmm (130-400) 01/26/22 02:47 MPV 10.2 fL (7.4-10.4) 01/26/22 02:47 Neut % (Auto) 66.9 % 01/26/22 02:47 Lymph % (Auto) 19.9 % 01/26/22 02:47 [place] % (Auto) 9.2 % 01/26/22 02:47 Eos % (Auto) 2.9 % 01/26/22 02:47 Baso % (Auto) 0.7 % 01/26/22 02:47 Neut # (Auto) 6.96 10^3/uL (1.8-7.7) 01/26/22 02:47 Lymph # (Auto) 2.1 10^3/uL (0.8-4.8) 01/26/22 02:47 [place] # (Auto) 1.0 10^3/uL (0.2-0.9) H 01/26/22 02:47 Eos # (Auto) 0.3 10^3/uL (0.0-0.8) 01/26/22 02:47 Baso # (Auto) 0.1 10^3/uL (0.0-0.1) 01/26/22 02:47 Nucleated RBC % (auto) 0 % 01/26/22 02:47 Nucleated RBCs # 0.0 /100WBC 01/26/22 02:47 Sodium 138 mmol/L (136-145) 01/25/22 02:26 Potassium 4.3 mmol/L (3.5-5.1) 01/25/22 02:26 Chloride 104 mmol/L (98-107) 01/25/22 02:26 Carbon Dioxide 25 mmol/L (22-29) 01/25/22 02:26 Anion Gap 13.3 (5-19) 01/25/22 02:26 BUN 13 mg/dL (6-20) 01/25/22 02:26 Creatinine 0.7 mg/dL (0.7-1.2) 01/25/22 02:26 GFR Calculation 119.4 mL/min (90-130) 01/25/22 02:26 Glucose 96 mg/dL (65-115) 01/25/22 02:26 POC Glucose 130 mg/dL (70-110) H 01/23/22 12:36 Estimat Average Glucose 105 01/23/22 00:57 Hemoglobin A1c 5.3 % (4.0-6.0) 01/23/22 00:57 Calculated Osmolality 286 mOsm/kg (285-295) 01/25/22 02:26 Lactic Acid 1.0 mmol/L (0.5-2.2) 01/23/22 03:51 Calcium 9.7 mg/dL (8.5-10.5) 01/25/22 02:26 Total Bilirubin 0.5 mg/dL (0.15-1.2) 01/23/22 00:57 AST 17 U/L (0-40) 01/23/22 00:57 ALT 15 U/L (0-41) 01/23/22 00:57 Alkaline Phosphatase 77 IU/L (40-130) 01/23/22 00:57 Creatine Kinase 55 U/L (39-308) 01/23/22 00:57 C-Reactive Protein 8.7 mg/L (0.0-4.9) H 01/25/22 02:26 Total Protein 6.8 g/dL (6.6-8.7) 01/23/22 00:57 Albumin 3.8 g/dL (3.5-5.2) 01/23/22 00:57 Globulin 3.0 g/dL (1.3-4.6) 01/23/22 00:57 Triglycerides 263 mg/dL (0-150) H 01/23/22 00:57 Cholesterol 211 mg/dL (0-200) H 01/23/22 00:57 LDL Cholesterol, Calc 129 mg/dL (50-129) 01/23/22 00:57 HDL Cholesterol 29 mg/dL (60-100) L 01/23/22 00:57 LDL/HDL Ratio 4.45 RATIO (0.00-3.22) H 01/23/22 00:57 Cholesterol/HDL Ratio 7.28 mg/dL (1.0-5.00) H 01/23/22 00:57 Procalcitonin 0.10 ng/mL (0-0.5) 01/24/22 05:12 Urine Color Yellow (Yellow) 01/23/22 01:06 Urine Appearance Clear (CLEAR) 01/23/22 01:06 Urine pH 5 (5-7) 01/23/22 01:06 Ur Specific [place] 1.020 (1.005-1.030) 01/23/22 01:06 Urine Protein Neg (Negative) 01/23/22 01:06 Urine Glucose (UA) Norm (Normal) 01/23/22 01:06 Urine Ketones Negative (Negative) 01/23/22 01:06 Urine Blood Trace (Negative) H 01/23/22 01:06 Urine Nitrate Negative (Negative) 01/23/22 01:06 Urine Bilirubin Neg (Negative) 01/23/22 01:06 Urine Urobilinogen Norm mg/dL (Negative) 01/23/22 01:06 Ur Leukocyte Esterase 1+ (Negative) H 01/23/22 01:06 Urine RBC 5-10 /hpf (0-2) H 01/23/22 01:06 Urine WBC 5-10 /hpf (0-5) H 01/23/22 01:06 Ur Squamous Epith Cells 0-4 /hpf (0-5) H 01/23/22 01:06 Amorphous Sediment Not Reportable 01/23/22 01:06 Urine Bacteria Trace /hpf (NONE) 01/23/22 01:06 Urine Mucus 2+ /hpf 01/23/22 01:06 Vancomycin Trough 13.3 ug/mL (10-15) 01/24/22 09:01 RPR Nonreactive (Nonreactive) 01/23/22 00:57 HIV 1&2 Ab & HIV 1 Ag Non-reactive (Non-Reactiv) 01/23/22 00:57 HIV 1&2 Antibody Non-reactive (Non-Reactiv) 01/23/22 00:57 Vitals Last Vital Signs Temp 97.6 F 01/26/22 07:43 Pulse 82 01/26/22 07:43 Resp 16 01/26/22 07:43 BP 138/86 01/26/22 07:43 Pulse Ox 100 01/26/22 07:43 Discharge Plan Discharge Patient Disposition: Home Condition: Stable Prescriptions: New ibuprofen 200 mg tablet 200 mg PO Q8H PRN (Reason: fever or pain) Qty: 60 0RF Augmentin 875-125 mg tablet 1 tab PO BID Qty: 20 0RF clindamycin HCl 300 mg capsule 300 mg PO Q8H 10 Days Qty: 30 0RF hydrocortisone 1 % cream 1 applic topical TID PRN (Reason: itching) Qty: 28.4 2RF Continued ondansetron HCl [Zofran] 4 mg tablet 4 mg PO Q8H PRN (Reason: nausea and vomiting) Qty: 14 0RF Discontinued naproxen sodium [Aleve] 220 mg Tablet 440 mg PO Q12H PRN (Reason: Pain) 0RF Discharge Orders: Discharge Order (Routine); Ordered 01/26/22 Ordered By: Dain Farrell Referrals: Reji Linton MD [Physician] - 02/08/22 2:30 pm Harriett Tao DO [Physician] - 2 weeks (Please call [facility] Saturday at to make an appointment with Dr. Tao for 2 weeks after your discharge date of 01/26/2022.) Discharge Diet: Regular Discharge Activity: Increase activity as tolerated Patient Instructions: Balanitis, Clindamycin (By mouth), Ibuprofen (By mouth), Amoxicillin/Clavulanate Potassium (By mouth), Hydrocortisone (On the skin), Cellulitis (GEN), Psoriasis (DC), Opioid Safety Discharge Attestations Time Spent in Discharge Care*: less than 30 min Quality Metrics Clinical Quality Measures [ No reported AMI, CVA or VTE this stay] Coding Level of Care Code Acute Chg FW DC note Diagnoses Cellulitis L03.90 Balanitis N48.1
== END 2022-01-26 15:00 | disposition home or self-care (01) | DRG 728 ==
LOC: ER 01-23 02:32 → ER IP 01-23 04:02 → MEDSURG 01-23 05:54
PROVIDERS: Physician Assistant; Admitting Provider Family Medicine; Emergency Provider Emergency Medicine; Visit Provider Internal Medicine
DX: N48.22 Cellulitis of corpus cavernosum and penis (principal); Z68.41 Body mass index [BMI] 40.0-44.9, adult; F17.200 Nicotine dependence, unspecified, uncomplicated; I10 Essential (primary) hypertension; L40.9 Psoriasis, unspecified; E66.01 Morbid (severe) obesity due to excess calories
CPT/HCPCS: 36415; 36416; 76870; 80048; 80053; 80061; 80202; 81001; 82550; 82962; 83036; 83605; 84145; 85025; 86140; 86592; 87040; 87086; 87491; 87591; 87806; 96365; 96366; 96367; 96372; 96375; 96376; 99285; J1650; J2270; J2405; J2543; J3370; J7050